=== PATIENT | male | born 1940 | race Caucasian/White ===

== ENCOUNTER 2017-03-04 09:54 | Inpatient (IN) | payer BC, MEDICARE ==
[~2017-03-04] VITALS: Ht 175.3 cm; Wt 67.8 kg
[~2017-03-04 09:54] MED LIST: calcium chloride 100 MG/1 ML inj IV ONE; epiNEPHrine 0.1mg/ml 10ml syringe ONE; epiNEPHrine 1 mg/ml 30ml MDV ONE; sodium bicarbonate (8.4%) 1 mEq/ml syringe ONE
[2017-03-04 10:50] LABS: BASOPHILS % (AUTO) 0 % (0-1); EOSINOPHILS # (AUTO) 0.3 X10'3 (0-0.9); EOSINOPHILS % (AUTO) 1.7 % (0-6); HEMATOCRIT 45.4 % (42.0-52.0); LYMPHOCYTES # (AUTO) 1.1 X10'3 (1.1-4.8); LYMPHOCYTES % (AUTO) 7.7 % (21-51); MEAN CORPUSCULAR HGB CONC 33.2 % (33.0-36.5); MEAN CORPUSCULAR VOLUME 93.4 FL (78-98); MEAN PLATELET VOLUME 8.8 FL (7.4-10.4); MONOCYTES # (AUTO) 0.3 X10'3 (0-0.9); MONOCYTES % (AUTO) 2.2 % (2-12); NEUTROPHILS # (AUTO) 13.1 X10'3 (1.8-7.7); NEUTROPHILS % (AUTO) 88.4 % (42-75); PLATELET COUNT 220 X10'3 (140-440); RED BLOOD COUNT 4.86 X10'6 (4.70-6.10); RED CELL DISTRIBUTION WIDTH 12.9 % (11.5-14.5); WHITE BLOOD COUNT 14.8 X10'3 (4.5-11.0)
[2017-03-04 11:05] LABS: ALANINE AMINOTRANSFERASE 19 U/L (12-78); ALBUMIN 3.7 G/DL (3.4-5.0); ALKALINE PHOSPHATASE 63 IU/L (46-116); ANION GAP 8 (8-16); ASPARTATE AMINO TRANSFERASE 19 U/L (10-37); BILIRUBIN,TOTAL 0.6 MG/DL (0.1-1.0); BLOOD UREA NITROGEN 21 MG/DL (7-18); BUN/CREATININE RATIO 15.3 (5.4-32.0); CALCIUM 9.4 MG/DL (8.5-10.1); CHLORIDE 102 MMOL/L (99-107); CREATININE 1.37 MG/DL (0.60-1.10); GLUCOSE 271 MG/DL (70-104); POTASSIUM 4.4 MMOL/L (3.5-5.1); SODIUM 139 MMOL/L (135-145); TOTAL CARBON DIOXIDE 29.3 MMOL/L (24-32); TOTAL PROTEIN 7.4 G/DL (6.4-8.2); eGFR 51 ML/MIN
[2017-03-04] MEDS ORDERED: heparin 10,000 units/1 ML INJ IV ONE (11:20)
[2017-03-04] MEDS ORDERED: morphine sulfate 8 MG/ML SYRINGE IV PRN ×2 (12:00)
[2017-03-04] MEDS ORDERED: acetaminophen 325mg tablet PO PRN ×2 (12:00)
[2017-03-04] MEDS ORDERED: magnesium Cl slow-release 64mg tablet PO PRN (12:00)
[2017-03-04] MEDS ORDERED: potassium Cl 40MEQ/NS 500ml 500 ML IV PRN ×2 (12:00)
[2017-03-04] MEDS ORDERED: mag hydrox/Alum hydrox/simeth 30ml oral suspension PO PRN (12:00)
[2017-03-04] MEDS ORDERED: potassium Cl 20 mEq SR tablet PO PRN ×2 (12:00)
[2017-03-04] MEDS ORDERED: ondansetron/PF 4mg/2ml inj IV PRN (12:00)
[2017-03-04] MEDS ORDERED: magnesium 4gm in 100ml NS 100 ML IV PRN (12:00)
[2017-03-04] MEDS ORDERED: HYDROcodone/acetaminophen 10/325mg tab PO PRN (12:00)
[2017-03-04] MEDS ORDERED: magnesium 2GM in 50ml NS 50 ML IV PRN (12:00)
[2017-03-04] MEDS ORDERED: HYDROcodone/acetaminophen 5mg/325mg tablet PO PRN (12:00)
[2017-03-04] MEDS ORDERED: magnesium hydroxide 30ml (MOM) UD suspension PO PRN (12:00)
[2017-03-04] MEDS ORDERED: FURO-150 PO (12:16)
[2017-03-04] MEDS ORDERED: CARV-49 PO (12:17)
[2017-03-04] MEDS ORDERED: SPIR25TA3 PO (12:18)
[2017-03-04] MEDS ORDERED: SIMV20TA5 PO (12:18)
[2017-03-04] MEDS ORDERED: LISI-600 PO (12:19)
[2017-03-04] MEDS ORDERED: ASPI81TA52 PO (12:20)
[2017-03-04] MEDS ORDERED: dextrose ORAL solution 15 GM/59 ML bottle PO PRN ×2 (12:20)
[2017-03-04] MEDS ORDERED: POTA-82 PO (12:20)
[2017-03-04] MEDS ORDERED: glucagon, human recombinant 1mg kit SUBCUT PRN (12:20)
[2017-03-04] MEDS ORDERED: MESSAGE TO PHARMACY PO ONE (12:20)
[2017-03-04] MEDS ORDERED: dextrose 50%-water 50ml dispensing syringe IV PRN ×2 (12:20)
[2017-03-04] MEDS ORDERED: INSU100V9 SQ (12:21)
[2017-03-04] MEDS ORDERED: INSU100C10 SQ (12:23)
[2017-03-04 12:30] LABS: PARTIAL THROMBOPLASTIN TIME 29 SECONDS (22-32); PROTHROMBIN TIME 10.5 SECONDS (9.0-12.0)
[2017-03-04 12:52] LABS: HEMOGLOBIN A1C 7.9 % (4.5-6.2)
[2017-03-04 13:00] VITALS: BP 112/63
[2017-03-04] MEDS: atorvastatin 20mg tablet PO SCH ×2 (13:22→23:39)
[2017-03-04] MEDS: normal saline 1000ml 1,000 ML IV SCH ×2 (13:55→22:09)
[2017-03-04 15:00] VITALS: BP 121/70
[2017-03-04 19:00] VITALS: BP 102/65
[2017-03-04] MEDS: insulin Lispro (HumaLOG) vial - multi-dose SQ SCH (19:15)
[2017-03-04] MEDS: carvedilol 6.25mg tablet PO SCH (19:20)
[2017-03-04] MEDS: Insulin Detemir pen SQ SCH (21:03)
[2017-03-04 23:00] VITALS: BP 103/62
[2017-03-04] MEDS: heparin 10,000 units/1 ML INJ IV PRN (23:43)
[2017-03-04] MEDS: aspirin 81mg tablet.DR PO SCH (23:44)
[2017-03-05] MEDS: tirofiban 5mg in NS 100mL 100 ML IV SCH ×3 (00:56→14:53)
[2017-03-05 03:00] VITALS: BP 99/57
[2017-03-05 07:00] VITALS: BP 99/59
[2017-03-05] MEDS: cefTRIAXone 1g/NS 100ml IVPB 100 ML IV SCH (07:32)
[2017-03-05] MEDS: carvedilol 6.25mg tablet PO SCH ×2 (07:33→18:59)
[2017-03-05] MEDS: aspirin 81mg tablet.DR PO SCH (07:33)
[2017-03-05] MEDS: clopidogrel 75mg tablet PO SCH (07:33)
[2017-03-05] MEDS: spironolactone 25 MG tablet PO SCH (07:33)
[2017-03-05] MEDS: atorvastatin 20mg tablet PO SCH ×2 (07:33→21:08)
[2017-03-05 07:57] LABS: BASOPHILS % (AUTO) 0.3 % (0-1); EOSINOPHILS # (AUTO) 0.3 X10'3 (0-0.9); EOSINOPHILS % (AUTO) 1.9 % (0-6); HEMATOCRIT 38.9 % (42.0-52.0); HEMOGLOBIN 12.8 g/dl (14.0-17.9); LYMPHOCYTES # (AUTO) 2.4 X10'3 (1.1-4.8); LYMPHOCYTES % (AUTO) 16.9 % (21-51); MEAN CORPUSCULAR HEMOGLOBIN 30.6 PG (27.0-31.0); MEAN CORPUSCULAR HGB CONC 32.9 % (33.0-36.5); MEAN CORPUSCULAR VOLUME 92.8 FL (78-98); MEAN PLATELET VOLUME 9.8 FL (7.4-10.4); MONOCYTES # (AUTO) 0.9 X10'3 (0-0.9); MONOCYTES % (AUTO) 6.7 % (2-12); NEUTROPHILS # (AUTO) 10.5 X10'3 (1.8-7.7); NEUTROPHILS % (AUTO) 74.2 % (42-75); PLATELET COUNT 212 X10'3 (140-440); RED CELL DISTRIBUTION WIDTH 13.5 % (11.5-14.5); WHITE BLOOD COUNT 14.2 X10'3 (4.5-11.0)
[2017-03-05] MEDS: K and/or MAG REPLACEMENT MC SCH (08:00)
[2017-03-05] MEDS: lisinopril 5mg tablet PO SCH (08:00)
[2017-03-05 08:17] LABS: PROTHROMBIN TIME 10.7 SECONDS (9.0-12.0)
[2017-03-05] MEDS: heparin 10,000 units/1 ML INJ IV PRN ×2 (08:27→22:38)
[2017-03-05 08:43] LABS: ALANINE AMINOTRANSFERASE 23 U/L (12-78); ALBUMIN 3.2 G/DL (3.4-5.0); ALKALINE PHOSPHATASE 54 IU/L (46-116); ANION GAP 7 (8-16); ASPARTATE AMINO TRANSFERASE 50 U/L (10-37); BILIRUBIN,TOTAL 0.6 MG/DL (0.1-1.0); BLOOD UREA NITROGEN 14 MG/DL (7-18); CALCIUM 8.7 MG/DL (8.5-10.1); CHLORIDE 108 MMOL/L (99-107); CHOL/HDL RATIO 2.3 (0.00-4.99); CHOLESTEROL 104 MG/DL (0-200); GLUCOSE 148 MG/DL (70-104); HDL CHOLESTEROL 45 MG/DL (35-60); LDL CHOLESTEROL 54 MG/DL (50-100); MAGNESIUM 1.8 MG/DL (1.5-2.4); POTASSIUM 4.2 MMOL/L (3.5-5.1); SODIUM 141 MMOL/L (135-145); TOTAL CARBON DIOXIDE 25.8 MMOL/L (24-32); TOTAL PROTEIN 6.3 G/DL (6.4-8.2); TRIGLYCERIDES 75 MG/DL (20-135); eGFR 49 ML/MIN
[2017-03-05] MEDS: normal saline 1000ml 1,000 ML IV SCH ×2 (09:31→21:10)
[2017-03-05 11:00] VITALS: BP 100/68
[2017-03-05] MEDS: insulin Lispro (HumaLOG) vial - multi-dose SQ SCH ×2 (13:41→19:07)
[2017-03-05 15:00] VITALS: BP 98/64
[2017-03-05 19:00] VITALS: BP 110/70
[2017-03-05] MEDS: Insulin Detemir pen SQ SCH (21:13)
[2017-03-05 23:00] VITALS: BP 107/77
[2017-03-05] MEDS ORDERED: acetaminophen w/codeine (30MG) #3 tablet PO PRN (23:45)
[2017-03-05] MEDS ORDERED: furosemide 40mg/4ml inj IV ONE (23:45)
[2017-03-06] VITALS (14 sets, daily range): BP systolic 79–126; BP diastolic 42–76
[2017-03-06 01:26] LABS: ABG BASE EXCESS -4.1 mmol/L (-2.0-3.0); ABG HCO3 19.9 mmol/L (22.0-26.0); ABG OXYGEN SATURATION 95.3 % (95-98); ABG PH (T) 7.397 (7.350-7.450); ABG PO2 (T) 80.4 mmHg (83-108); ALLEN'S TEST Positive; FLOW 15 L/min; FMetHb 0.3 % (0.3-1.12); FO2Hb 94.1 % (94-100); PATIENT TEMPERATURE 36.7; TOTAL HEMOGLOBIN 14.5 G/dl (14.0-18.0)
[2017-03-06 05:29] LABS: BASOPHILS # (AUTO) 0.1 X10'3 (0-0.2); BASOPHILS % (AUTO) 0.2 % (0-1); EOSINOPHILS # (AUTO) 0.3 X10'3 (0-0.9); EOSINOPHILS % (AUTO) 1.6 % (0-6); HEMATOCRIT 42.1 % (42.0-52.0); LYMPHOCYTES # (AUTO) 1.4 X10'3 (1.1-4.8); LYMPHOCYTES % (AUTO) 6.8 % (21-51); MEAN CORPUSCULAR HEMOGLOBIN 30.9 PG (27.0-31.0); MEAN CORPUSCULAR HGB CONC 33.4 % (33.0-36.5); MEAN CORPUSCULAR VOLUME 92.5 FL (78-98); MEAN PLATELET VOLUME 9.8 FL (7.4-10.4); MONOCYTES % (AUTO) 4.8 % (2-12); NEUTROPHILS # (AUTO) 18.2 X10'3 (1.8-7.7); NEUTROPHILS % (AUTO) 86.6 % (42-75); PLATELET COUNT 213 X10'3 (140-440); RED BLOOD COUNT 4.55 X10'6 (4.70-6.10); RED CELL DISTRIBUTION WIDTH 13.8 % (11.5-14.5)
[2017-03-06 05:53] LABS: ALANINE AMINOTRANSFERASE 22 U/L (12-78); ALBUMIN 3.4 G/DL (3.4-5.0); ALBUMIN/GLOBULIN RATIO 0.9 (1.1-1.5); ALKALINE PHOSPHATASE 61 IU/L (46-116); ANION GAP 13 (8-16); ASPARTATE AMINO TRANSFERASE 37 U/L (10-37); BILIRUBIN,TOTAL 0.9 MG/DL (0.1-1.0); BLOOD UREA NITROGEN 13 MG/DL (7-18); BUN/CREATININE RATIO 9.5 (5.4-32.0); CALCIUM 9.1 MG/DL (8.5-10.1); CHLORIDE 104 MMOL/L (99-107); CREATININE 1.37 MG/DL (0.60-1.10); GLUCOSE 254 MG/DL (70-104); POTASSIUM 3.9 MMOL/L (3.5-5.1); SODIUM 140 MMOL/L (135-145); TOTAL CARBON DIOXIDE 23.1 MMOL/L (24-32); TOTAL PROTEIN 7.1 G/DL (6.4-8.2); eGFR 51 ML/MIN
[2017-03-06] MEDS: normal saline 1000ml 1,000 ML IV SCH (06:26)
[2017-03-06] MEDS: lisinopril 5mg tablet PO SCH (07:14)
[2017-03-06] MEDS: aspirin 81mg tablet.DR PO SCH (07:15)
[2017-03-06] MEDS: carvedilol 6.25mg tablet PO SCH ×2 (07:15→19:53)
[2017-03-06] MEDS: atorvastatin 20mg tablet PO SCH ×2 (07:15→21:07)
[2017-03-06] MEDS: clopidogrel 75mg tablet PO SCH (07:15)
[2017-03-06] MEDS: spironolactone 25 MG tablet PO SCH (07:15)
[2017-03-06] MEDS: cefTRIAXone 1g/NS 100ml IVPB 100 ML IV SCH (07:17)
[2017-03-06] MEDS: K and/or MAG REPLACEMENT MC SCH (07:22)
[2017-03-06] MEDS: insulin Lispro (HumaLOG) vial - multi-dose SQ SCH ×3 (07:55→19:30)
[2017-03-06] MEDS ORDERED: ipratropium/albuterol 3ml nebule NEB PRN (11:15)
[2017-03-06] MEDS ORDERED: albuterol 2.5 MG/3 ML nebule NEB PRN (11:15)
[2017-03-06] MEDS ORDERED: diphenhydrAMINE 50 mg/ml inj IV ONE (11:30)
[2017-03-06] MEDS ORDERED: LORazepam 2 mg/ml vial IV ONE (11:30)
[2017-03-06] MEDS ORDERED: LIDOcaine 1%/PF (10mg/ml) 5ml vial ONE (11:34)
[2017-03-06] MEDS ORDERED: midazolam 2 mg/2 ml injection ONE (11:34)
[2017-03-06] MEDS ORDERED: fentaNYL/PF 50MCG/1 ML 2ML syringe ONE (11:34)
[2017-03-06] MEDS ORDERED: iohexol 350MG/ML 100ml bottle IV ONE (11:35)
[2017-03-06] MEDS: lactobacillus rhamnosus 10,000 MMU CELLS/CAPSULE PO SCH (17:25)
[2017-03-06 17:31] LABS: PLATELET FUNCTION (ADP) 130 SECONDS (63-104)
[2017-03-06] MEDS ORDERED: normal saline 500ml IV soln 1,000 ML IV ONE (17:40)
[2017-03-06] MEDS: Insulin Detemir pen SQ SCH (21:13)
[2017-03-07] VITALS (7 sets, daily range): BP systolic 89–107; BP diastolic 54–66
[2017-03-07 05:38] LABS: BASOPHILS % (AUTO) 0.1 % (0-1); EOSINOPHILS # (AUTO) 0.2 X10'3 (0-0.9); EOSINOPHILS % (AUTO) 1.8 % (0-6); HEMATOCRIT 35.2 % (42.0-52.0); HEMOGLOBIN 11.6 g/dl (14.0-17.9); LYMPHOCYTES % (AUTO) 16.8 % (21-51); MEAN CORPUSCULAR HEMOGLOBIN 30.7 PG (27.0-31.0); MEAN CORPUSCULAR HGB CONC 32.9 % (33.0-36.5); MEAN CORPUSCULAR VOLUME 93.2 FL (78-98); MEAN PLATELET VOLUME 8.9 FL (7.4-10.4); MONOCYTES # (AUTO) 1.1 X10'3 (0-0.9); MONOCYTES % (AUTO) 8.7 % (2-12); NEUTROPHILS # (AUTO) 8.8 X10'3 (1.8-7.7); NEUTROPHILS % (AUTO) 72.6 % (42-75); PLATELET COUNT 172 X10'3 (140-440); RED BLOOD COUNT 3.78 X10'6 (4.70-6.10); RED CELL DISTRIBUTION WIDTH 13.7 % (11.5-14.5); WHITE BLOOD COUNT 12.2 X10'3 (4.5-11.0)
[2017-03-07 05:47] LABS: PROTHROMBIN TIME 10.4 SECONDS (9.0-12.0)
[2017-03-07 06:20] LABS: ALANINE AMINOTRANSFERASE 15 U/L (12-78); ALBUMIN 2.6 G/DL (3.4-5.0); ALBUMIN/GLOBULIN RATIO 0.8 (1.1-1.5); ALKALINE PHOSPHATASE 46 IU/L (46-116); ANION GAP 9 (8-16); ASPARTATE AMINO TRANSFERASE 29 U/L (10-37); BILIRUBIN,TOTAL 0.7 MG/DL (0.1-1.0); BLOOD UREA NITROGEN 17 MG/DL (7-18); BUN/CREATININE RATIO 12.1 (5.4-32.0); CALCIUM 8.8 MG/DL (8.5-10.1); CHLORIDE 104 MMOL/L (99-107); CREATININE 1.41 MG/DL (0.60-1.10); GLUCOSE 89 MG/DL (70-104); MAGNESIUM 1.9 MG/DL (1.5-2.4); POTASSIUM 3.5 MMOL/L (3.5-5.1); SODIUM 139 MMOL/L (135-145); TOTAL CARBON DIOXIDE 25.9 MMOL/L (24-32); eGFR 49 ML/MIN
[2017-03-07] MEDS: K and/or MAG REPLACEMENT MC SCH (08:00)
[2017-03-07] MEDS ORDERED: azithromycin/NS 500mg/250ml 250 ML IV SCH (08:00)
[2017-03-07] MEDS: atorvastatin 20mg tablet PO SCH ×2 (08:04→20:09)
[2017-03-07] MEDS: aspirin 81mg tablet.DR PO SCH (08:05)
[2017-03-07] MEDS: carvedilol 6.25mg tablet PO SCH ×2 (08:05→19:21)
[2017-03-07] MEDS: lactobacillus rhamnosus 10,000 MMU CELLS/CAPSULE PO SCH ×2 (08:05→16:57)
[2017-03-07] MEDS: spironolactone 25 MG tablet PO SCH (08:05)
[2017-03-07] MEDS ORDERED: MESSAGE TO NURSING IV ONE (09:40)
[2017-03-07] MEDS ORDERED: dextrose 50%-water 50ml dispensing syringe IV PRN (09:40)
[2017-03-07] MEDS ORDERED: MESSAGE TO NURSING PO ONE ×5 (09:40→10:00)
[2017-03-07] MEDS: cefTRIAXone 1g/NS 100ml IVPB 100 ML IV SCH (10:15)
[2017-03-07 10:48] LABS: HEMATOCRIT 37.1 % (42.0-52.0); HEMOGLOBIN 12.3 g/dl (14.0-17.9); MEAN CORPUSCULAR HEMOGLOBIN 30.8 PG (27.0-31.0); MEAN CORPUSCULAR HGB CONC 33.1 % (33.0-36.5); MEAN CORPUSCULAR VOLUME 92.9 FL (78-98); MEAN PLATELET VOLUME 8.9 FL (7.4-10.4); PLATELET COUNT 179 X10'3 (140-440); RED BLOOD COUNT 3.99 X10'6 (4.70-6.10); RED CELL DISTRIBUTION WIDTH 13.7 % (11.5-14.5); WHITE BLOOD COUNT 13.6 X10'3 (4.5-11.0)
[2017-03-07 10:57] LABS: ALBUMIN 2.8 G/DL (3.4-5.0); ANION GAP 8 (8-16); BLOOD UREA NITROGEN 19 MG/DL (7-18); BUN/CREATININE RATIO 14.1 (5.4-32.0); CALCIUM 8.9 MG/DL (8.5-10.1); CHLORIDE 104 MMOL/L (99-107); CREATININE 1.35 MG/DL (0.60-1.10); GLUCOSE 206 MG/DL (70-104); POTASSIUM 3.8 MMOL/L (3.5-5.1); SODIUM 138 MMOL/L (135-145); TOTAL CARBON DIOXIDE 26.2 MMOL/L (24-32); eGFR 52 ML/MIN
[2017-03-07 12:45] LABS: PARTIAL THROMBOPLASTIN TIME 30 SECONDS (22-32); PROTHROMBIN TIME 10.6 SECONDS (9.0-12.0)
[2017-03-07] MEDS ORDERED: LORazepam 2 mg/ml vial IV ONE (13:45)
[2017-03-07] MEDS ORDERED: famotidine/PF 10 mg/ml inj IV ONE (13:45)
[2017-03-07 15:39] LABS: PLATELET FUNCTION (ADP) 115.5 SECONDS (63-104)
[2017-03-07] MEDS: insulin Lispro (HumaLOG) vial - multi-dose SQ SCH (19:18)
[2017-03-07] MEDS ORDERED: mupirocin 2% ointment 22GM NS SCH (20:00)
[2017-03-07] MEDS: Insulin Detemir pen SQ SCH ×2 (21:00→21:56)
[2017-03-07 21:45] LABS: ABG HCO3 24.8 mmol/L (22.0-26.0); ABG OXYGEN SATURATION 89.5 % (95-98); ABG PCO2 (T) 36.7 mmHg (35.0-48.0); ABG PH (T) 7.447 (7.350-7.450); ABG PO2 (T) 56.5 mmHg (83-108); ALLEN'S TEST Positive; FCOHb 0.3 % (0.5-1.5); FLOW 1 L/min; FMetHb 0.3 % (0.3-1.12); RESPIRATORY RATE (OBSERVED) 16 b/min; TOTAL HEMOGLOBIN 12.3 G/dl (14.0-18.0)
[2017-03-08] VITALS (15 sets, daily range): BP systolic 0–98; BP diastolic 0–54
[2017-03-08] MEDS ORDERED: vancomycin/NS 1 GM ADD-VANTAGE 250 ML IV ONE ×2 (05:00→06:00)
[2017-03-08 05:21] LABS: BASOPHILS % (AUTO) 0.2 % (0-1); EOSINOPHILS # (AUTO) 0.3 X10'3 (0-0.9); EOSINOPHILS % (AUTO) 2.2 % (0-6); HEMATOCRIT 35.7 % (42.0-52.0); HEMOGLOBIN 11.9 g/dl (14.0-17.9); LYMPHOCYTES # (AUTO) 1.8 X10'3 (1.1-4.8); LYMPHOCYTES % (AUTO) 14.5 % (21-51); MEAN CORPUSCULAR HEMOGLOBIN 30.8 PG (27.0-31.0); MEAN CORPUSCULAR HGB CONC 33.2 % (33.0-36.5); MEAN CORPUSCULAR VOLUME 92.7 FL (78-98); MEAN PLATELET VOLUME 9.2 FL (7.4-10.4); MONOCYTES % (AUTO) 7.9 % (2-12); NEUTROPHILS # (AUTO) 9.2 X10'3 (1.8-7.7); NEUTROPHILS % (AUTO) 75.2 % (42-75); PLATELET COUNT 179 X10'3 (140-440); RED BLOOD COUNT 3.85 X10'6 (4.70-6.10); RED CELL DISTRIBUTION WIDTH 13.3 % (11.5-14.5); WHITE BLOOD COUNT 12.3 X10'3 (4.5-11.0)
[2017-03-08 05:37] LABS: ALBUMIN 2.9 G/DL (3.4-5.0); ANION GAP 8 (8-16); BLOOD UREA NITROGEN 18 MG/DL (7-18); CALCIUM 8.9 MG/DL (8.5-10.1); CHLORIDE 104 MMOL/L (99-107); CREATININE 1.29 MG/DL (0.60-1.10); GLUCOSE 143 MG/DL (70-104); SODIUM 139 MMOL/L (135-145); TOTAL CARBON DIOXIDE 27.3 MMOL/L (24-32); eGFR 54 ML/MIN
[2017-03-08 06:00] LABS: PROTHROMBIN TIME 10.3 SECONDS (9.0-12.0)
[2017-03-08] MEDS ORDERED: cefazolin/dext.iso 2gm/50ml 50 ML IV ONE (06:00)
[2017-03-08] MEDS ORDERED: LORazepam 2 mg/ml vial IV ONE (06:30)
[2017-03-08] MEDS ORDERED: famotidine/PF 10 mg/ml inj IV ONE (06:30)
[2017-03-08] MEDS: insulin regular, human inj. 100 UNITS in normal saline 100ml IV soln 100 ML IV SCH ×4 (07:00→12:16)
[2017-03-08] MEDS ORDERED: potassium Cl 2 mEq/ml inj IV ONE (07:02)
[2017-03-08] MEDS ORDERED: LORazepam 2 mg/ml vial ONE (07:02)
[2017-03-08] MEDS ORDERED: nitroGLYCERIN in D5W 50mg/250ml (Tridil) infusion IV ONE (07:02)
[2017-03-08] MEDS ORDERED: protamine sulf. 10mg/ml inj. IV ONE (07:02)
[2017-03-08] MEDS ORDERED: calcium chloride 100 MG/1 ML inj IV ONE (07:02)
[2017-03-08] MEDS ORDERED: isoflurane 100ml inhalation liquid IH ONE (07:02)
[2017-03-08] MEDS ORDERED: heparin 10,000 units/1 ML INJ ONE (07:02)
[2017-03-08] MEDS ORDERED: DOBUTamine/D5W 500mg/250ml premix IV ONE (07:02)
[2017-03-08] MEDS ORDERED: SUFENTANIL CITRATE 50 MCG/ML 2ml ampule IV ONE (07:09)
[2017-03-08] MEDS ORDERED: phenylephrine 10mg/ml inj IV ONE (07:57)
[2017-03-08] MEDS ORDERED: albumin (Human) 5% 250ml 250 ML IV ONE (07:57)
[2017-03-08] MEDS ORDERED: rocuronium 10mg/ml inj IV ONE (07:57)
[2017-03-08] MEDS ORDERED: pancuronium br 1mg/ml inj IV ONE (07:57)
[2017-03-08] MEDS ORDERED: propofol inj 20 ML IV ONE (07:57)
[2017-03-08] MEDS: atorvastatin 20mg tablet PO SCH (08:00)
[2017-03-08 08:05] LABS: ABG HCO3 21.5 mmol/L (22.0-26.0); ABG OXYGEN SATURATION 96.6 % (95-98); ABG PCO2 33.1 mmHg (35.0-45.0); ABG PH 7.431 (7.350-7.450); ABG PO2 91.8 mmHg (60.0-100.0); CL (ABG) 104 mmol/L (99-107); FCOHb 0.6 % (0.5-1.5); GLUCOSE (ABG) 135 mg/dl (70-105); IONIZED CA (ABG) 1.15 mmol/L (1.03-1.32); K (ABG) 3.5 mmol/L (3.3-5.1); NA (ABG) 134 mmol/L (135-145); TOTAL HEMOGLOBIN 13.6 G/dl (14.0-18.0)
[2017-03-08] MEDS ORDERED: papaverine 30 mg/ml 2ml inj. IA ONE (08:06)
[2017-03-08 08:32] LABS: PLATELET FUNCTION (ADP) 127 SECONDS (63-104)
[2017-03-08 08:51] LABS: ABG BASE EXCESS -2.3 mmol/L (-2.0-3.0); ABG HCO3 21.4 mmol/L (22.0-26.0); ABG OXYGEN SATURATION 97.6 % (95-98); ABG PH 7.429 (7.350-7.450); ABG PO2 116.3 mmHg (60.0-100.0); CL (ABG) 105 mmol/L (99-107); FCOHb 0.1 % (0.5-1.5); FMetHb 0.3 % (0.3-1.12); FO2Hb 97.2 % (94-100); GLUCOSE (ABG) 125 mg/dl (70-105); IONIZED CA (ABG) 1.12 mmol/L (1.03-1.32); K (ABG) 3.6 mmol/L (3.3-5.1); NA (ABG) 133 mmol/L (135-145); TOTAL HEMOGLOBIN 11.2 G/dl (14.0-18.0)
[2017-03-08 09:15] LABS: ACT @ 1.70 U 339 SEC (193-297); ACT @ 2.84 U 486 SEC (260-420); BASELINE ACT 152 SEC (101-148); PATIENT WEIGHT 60.0k KG
[2017-03-08 09:46] LABS: ABG BASE EXCESS -3.3 mmol/L (-2.0-3.0); ABG HCO3 20.2 mmol/L (22.0-26.0); ABG OXYGEN SATURATION 98.4 % (95-98); ABG PCO2 30.7 mmHg (35.0-45.0); ABG PH 7.437 (7.350-7.450); ABG PO2 218.9 mmHg (60.0-100.0); CL (ABG) 109 mmol/L (99-107); FCOHb 0.3 % (0.5-1.5); FMetHb 0.3 % (0.3-1.12); FO2Hb 97.8 % (94-100); GLUCOSE (ABG) 96 mg/dl (70-105); K (ABG) 3.3 mmol/L (3.3-5.1); NA (ABG) 135 mmol/L (135-145); TOTAL HEMOGLOBIN 9.3 G/dl (14.0-18.0)
[2017-03-08] MEDS ORDERED: DOPamine 400mg/D5W 250ml 250 ML IV PRN (10:07)
[2017-03-08] MEDS ORDERED: sodium chloride 0.45% 1,000 ML IV SCH (10:07)
[2017-03-08] MEDS ORDERED: nitroGLYCERIN-Tridil 50MG/D5W 250 ML IV PRN (10:07)
[2017-03-08] MEDS ORDERED: niCARDipine/sod cl 20mg/200ml 200 ML IV PRN (10:07)
[2017-03-08] MEDS ORDERED: acetaminophen 325mg tablet PO PRN (10:10)
[2017-03-08] MEDS ORDERED: potassium Cl 20mEq/100mL bag 100 ML IV PRN ×3 (10:10)
[2017-03-08] MEDS ORDERED: albumin (Human) 5% 250ml 250 ML IV PRN (10:10)
[2017-03-08] MEDS ORDERED: sodium phosphate inj. 30 MMOL in dextrose 5%-water 250 ML IV PRN (10:10)
[2017-03-08] MEDS ORDERED: magnesium 4gm in 100ml NS 100 ML IV PRN (10:10)
[2017-03-08] MEDS ORDERED: insulin regular, human inj. 100 UNITS in normal saline 100ml IV soln 100 ML IV SCH ×2 (10:10)
[2017-03-08] MEDS ORDERED: sodium phosphate inj. 15 MMOL in dextrose 5%-water 150 ML IV PRN (10:10)
[2017-03-08] MEDS ORDERED: magnesium 2GM in 50ml NS 50 ML IV PRN (10:10)
[2017-03-08] MEDS ORDERED: Neutra Phos packet PO PRN (10:10)
[2017-03-08] MEDS ORDERED: ondansetron/PF 4mg/2ml inj IV PRN (10:10)
[2017-03-08] MEDS ORDERED: morphine sulfate 8 MG/ML SYRINGE IV PRN ×2 (10:10)
[2017-03-08] MEDS ORDERED: metoclopramide 5 mg/ml inj IV PRN (10:10)
[2017-03-08] MEDS ORDERED: dextrose 50%-water 50ml dispensing syringe IV PRN (10:10)
[2017-03-08] MEDS ORDERED: HYDROcodone/acetaminophen 10/325mg tab PO PRN ×2 (10:10)
[2017-03-08] MEDS ORDERED: magnesium hydroxide 30ml (MOM) UD suspension PO PRN (10:10)
[2017-03-08] MEDS ORDERED: normal saline 250ml IV soln 250 ML IV PRN (10:10)
[2017-03-08 10:35] LABS: ABG BASE EXCESS -4.2 mmol/L (-2.0-3.0); ABG HCO3 20.3 mmol/L (22.0-26.0); ABG OXYGEN SATURATION 98.6 % (95-98); ABG PCO2 (T) 33.5 mmHg (35.0-48.0); ABG PH (T) 7.396 (7.350-7.450); ABG PO2 (T) 296.3 mmHg (83-108); FCOHb 0.3 % (0.5-1.5); FMetHb 0.3 % (0.3-1.12); PATIENT TEMPERATURE 36.1; PEEP 5 cm H2O; RESPIRATORY RATE 12 b/min; TIDAL VOLUME 500 mL; TOTAL HEMOGLOBIN 9.8 G/dl (14.0-18.0)
[2017-03-08 11:14] LABS: BASOPHILS % (AUTO) 0.1 % (0-1); EOSINOPHILS # (AUTO) 0.3 X10'3 (0-0.9); EOSINOPHILS % (AUTO) 2.8 % (0-6); HEMATOCRIT 27.5 % (42.0-52.0); HEMOGLOBIN 9.1 g/dl (14.0-17.9); INR 1.2 INR; MEAN CORPUSCULAR HEMOGLOBIN 30.8 PG (27.0-31.0); MEAN CORPUSCULAR HGB CONC 33.2 % (33.0-36.5); MEAN CORPUSCULAR VOLUME 92.6 FL (78-98); MEAN PLATELET VOLUME 8.9 FL (7.4-10.4); MONOCYTES # (AUTO) 0.3 X10'3 (0-0.9); MONOCYTES % (AUTO) 3.1 % (2-12); NEUTROPHILS # (AUTO) 7.9 X10'3 (1.8-7.7); PARTIAL THROMBOPLASTIN TIME 33 SECONDS (22-32); PLATELET COUNT 130 X10'3 (140-440); PROTHROMBIN TIME 12.4 SECONDS (9.0-12.0); RED BLOOD COUNT 2.97 X10'6 (4.70-6.10); WHITE BLOOD COUNT 9.6 X10'3 (4.5-11.0)
[2017-03-08 11:21] LABS: ALANINE AMINOTRANSFERASE 12 U/L (12-78); ALBUMIN 2.3 G/DL (3.4-5.0); ALKALINE PHOSPHATASE 30 IU/L (46-116); ANION GAP 5 (8-16); ASPARTATE AMINO TRANSFERASE 17 U/L (10-37); BILIRUBIN,TOTAL 0.6 MG/DL (0.1-1.0); BLOOD UREA NITROGEN 15 MG/DL (7-18); BUN/CREATININE RATIO 15.6 (5.4-32.0); CALCIUM 7.4 MG/DL (8.5-10.1); CHLORIDE 111 MMOL/L (99-107); CREATININE 0.96 MG/DL (0.60-1.10); GLUCOSE 99 MG/DL (70-104); POTASSIUM 5.4 MMOL/L (3.5-5.1); SODIUM 140 MMOL/L (135-145); TOTAL CARBON DIOXIDE 23.6 MMOL/L (24-32); TOTAL PROTEIN 4.5 G/DL (6.4-8.2); eGFR 76 ML/MIN
[2017-03-08 11:22] LABS: MAGNESIUM 1.6 MG/DL (1.5-2.4); PHOSPHORUS 2.1 MG/DL (2.3-4.5)
[2017-03-08 12:40] LABS: ABG BASE EXCESS -11.3 mmol/L (-2.0-3.0); ABG HCO3 15.3 mmol/L (22.0-26.0); ABG OXYGEN SATURATION 89.1 % (95-98); ABG PCO2 37.2 mmHg (35.0-45.0); ABG PH 7.233 (7.350-7.450); ABG PO2 67.6 mmHg (60.0-100.0); CL (ABG) 108 mmol/L (99-107); FCOHb 0.3 % (0.5-1.5); FMetHb 0.8 % (0.3-1.12); FO2Hb 88.1 % (94-100); GLUCOSE (ABG) 210 mg/dl (70-105); IONIZED CA (ABG) 1.12 mmol/L (1.03-1.32); K (ABG) 4.7 mmol/L (3.3-5.1); NA (ABG) 136 mmol/L (135-145)
[2017-03-08 12:41] LABS: BASOPHILS # (AUTO) 0.1 X10'3 (0-0.2); BASOPHILS % (AUTO) 0.3 % (0-1); EOSINOPHILS # (AUTO) 0.4 X10'3 (0-0.9); EOSINOPHILS % (AUTO) 2.7 % (0-6); HEMATOCRIT 24.9 % (42.0-52.0); HEMOGLOBIN 8.3 g/dl (14.0-17.9); LYMPHOCYTES # (AUTO) 1.8 X10'3 (1.1-4.8); LYMPHOCYTES % (AUTO) 11.3 % (21-51); MEAN CORPUSCULAR HEMOGLOBIN 30.8 PG (27.0-31.0); MEAN CORPUSCULAR HGB CONC 33.2 % (33.0-36.5); MEAN CORPUSCULAR VOLUME 92.7 FL (78-98); MEAN PLATELET VOLUME 8.7 FL (7.4-10.4); MONOCYTES # (AUTO) 1.3 X10'3 (0-0.9); NEUTROPHILS # (AUTO) 12.5 X10'3 (1.8-7.7); NEUTROPHILS % (AUTO) 77.7 % (42-75); PLATELET COUNT 157 X10'3 (140-440); RED BLOOD COUNT 2.69 X10'6 (4.70-6.10); RED CELL DISTRIBUTION WIDTH 13.5 % (11.5-14.5); WHITE BLOOD COUNT 16.1 X10'3 (4.5-11.0)
[2017-03-08] MEDS ORDERED: furosemide 40mg/4ml inj IV ONE (12:55)
[2017-03-08] MEDS ORDERED: insulin Lispro (HumaLOG) vial - multi-dose SQ SCH ×2 (13:00)
[2017-03-08] MEDS ORDERED: ceFAZolin/D5W- 1GM premix 50 ML IV SCH (16:00)
[2017-03-08] MEDS ORDERED: lactobacillus rhamnosus 10,000 MMU CELLS/CAPSULE PO SCH (17:30)
[2017-03-08] MEDS ORDERED: docusate sod 100mg capsule PO SCH (20:00)
[2017-03-08] MEDS ORDERED: vancomycin/NS 1 GM ADD-VANTAGE 250 ML IV SCH (20:00)
[2017-03-08] MEDS ORDERED: mupirocin 2% ointment 22GM NS SCH (20:00)
[2017-03-09] MEDS ORDERED: pantoprazole 40mg Tablet.DR PO SCH (07:30)
[2017-03-09] MEDS ORDERED: aspirin 325mg tablet, delayed-release (Ecotrin) PO SCH (08:00)
[2017-03-09] MEDS ORDERED: metoprolol tartrate 12.5mg (1/2 tablet) PO SCH (08:00)
== END 2017-03-08 17:40 | disposition expired | DRG 233 ==
LOC: ER 09:55 → ED HOLD 11:28 → PCU 3S 12:52 → UNDODISIN 03-05 11:00 → CICU 2S 03-08 10:20
PROVIDERS: ADMIT Internal Medicine; ATTEND Thoracic Surgery (Cardiothoracic Vascular Surgery)
PROC: 4A023N7 Measurement of Cardiac Sampling and Pressure, Left Heart, Percutaneous Approach (ICD-10-PCS; principal; 2017-03-06)
PROC: B2111ZZ Fluoroscopy of Multiple Coronary Arteries using Low Osmolar Contrast (ICD-10-PCS; 2017-03-06)
PROC: B2151ZZ Fluoroscopy of Left Heart using Low Osmolar Contrast (ICD-10-PCS; 2017-03-06)
PROC: B3121ZZ Fluoroscopy of Left Subclavian Artery using Low Osmolar Contrast (ICD-10-PCS; 2017-03-06)
PROC: B41J1ZZ Fluoroscopy of Other Lower Arteries using Low Osmolar Contrast (ICD-10-PCS; 2017-03-06)
PROC: B2181ZZ Fluoroscopy of Left Internal Mammary Bypass Graft using Low Osmolar Contrast (ICD-10-PCS; 2017-03-06)
PROC: 5A09357 Assistance with Respiratory Ventilation, Less than 24 Consecutive Hours, Continuous Positive Airway Pressure (ICD-10-PCS; 2017-03-06)
PROC: 02100Z9 Bypass Coronary Artery, One Artery from Left Internal Mammary, Open Approach (ICD-10-PCS; 2017-03-08)
PROC: 5A02210 Assistance with Cardiac Output using Balloon Pump, Continuous (ICD-10-PCS; 2017-03-08)
PROC: 30233M1 Transfusion of Nonautologous Plasma Cryoprecipitate into Peripheral Vein, Percutaneous Approach (ICD-10-PCS; 2017-03-08)
PROC: B24BZZ4 Ultrasonography of Heart with Aorta, Transesophageal (ICD-10-PCS; 2017-03-08)
DX: I21.4 Non-ST elevation (NSTEMI) myocardial infarction (principal); J18.1 Lobar pneumonia, unspecified organism; I50.22 Chronic systolic (congestive) heart failure; I95.9 Hypotension, unspecified; D68.8 Other specified coagulation defects; E11.65 Type 2 diabetes mellitus with hyperglycemia; D64.9 Anemia, unspecified; R74.0 Nonspecific elevation of levels of transaminase and lactic acid dehydrogenase [LDH]; I44.7 Left bundle-branch block, unspecified; I25.5 Ischemic cardiomyopathy; E78.5 Hyperlipidemia, unspecified; I08.0 Rheumatic disorders of both mitral and aortic valves; I25.10 Atherosclerotic heart disease of native coronary artery without angina pectoris; N28.9 Disorder of kidney and ureter, unspecified; Z80.9 Family history of malignant neoplasm, unspecified; Z95.5 Presence of coronary angioplasty implant and graft; Z79.899 Other long term (current) drug therapy; Z98.52 Vasectomy status; Z79.4 Long term (current) use of insulin
CPT/HCPCS: 0232T; 92950; 93306; 93312; 93325; 93458; 99291; Z7506; Z7508; 36415; 36600; 71010; 80048; 80053; 80061; 82330; 82435; 82803; 82947; 82948; 83036; 83605; 83735; 84100; 84132; 84295; 84484; 85018; 85025; 85027; 85347; 85384; 85576; 85610; 85730; 86885; 86900; 86901; 86920; 87040; 87070; 93005; 93308; 93880; 93971; 94002; 94060; 94640; 94660; 94760; A4315; A4620; A6255; A6257; A6258; A6402; A6449; A7000; A7048; C1725; C1769; J0171; J0456; J0690; J0696; J1200; J1250; J1644; J1815; J1940; J2001; J2060; J2250; J2270; J2370; J2440; J2704; J2720; J3010; J3246; J3370; J3475; J3480; J3490; J7030; J7120; P9012; P9045; Q9967